=== PATIENT | male | born 1970 | race Caucasian/White ===

== ENCOUNTER 2021-07-27 04:30 | Day surgery (SDC) | payer OTHER ==
[2021-07-27] MEDS ORDERED: MIDAZOLAM HCL 2 MG/2 ML SINGLE DOSE VIAL ONE (14:18)
[2021-07-27] MEDS ORDERED: SUCCINYLCHOLINE CHLORIDE 200 MG/10 ML SYRINGE ONE (14:18)
[2021-07-27 14:56] VITALS: PULSE 60
[2021-07-27 15:45] VITALS: BP 138/80; TEMP 97.7
== END 2021-07-27 15:35 | disposition home or self-care (01) ==
LOC: JASU-SURG 04:30
PROVIDERS: ATTEND Urology
PROC: 0TF3XZZ Fragmentation in Right Kidney Pelvis, External Approach (ICD-10-PCS; principal; 2021-07-27 14:30)
DX: N20.0 Calculus of kidney (principal)
CPT/HCPCS: 82962

== ENCOUNTER 2022-09-15 10:52 | Day surgery (SDC) | payer OTHER ==
[2022-09-15 10:55] VITALS: BMI 33.7
[2022-09-15] MEDS ORDERED: morphine CARPU-JECT 4 MG/1 ML DISP.SYRIN IVPUSH PRN (11:45)
[2022-09-15] MEDS ORDERED: ONDANSETRON 4 MG/2 ML VIAL IVPUSH ONE (11:45)
[2022-09-15] MEDS ORDERED: SODIUM CHLORIDE 1,000 ML IV STA (11:45)
[2022-09-15] MEDS ORDERED: ACETAMINOPHEN 1000 MG/100 ML BAG IVPB ONE (11:45)
[2022-09-15] MEDS ORDERED: ACETAMINOPHEN INJECTION 100 ML IVPB ONE ×2 (12:18→17:49)
[2022-09-15] MEDS ORDERED: ONDANSETRON 4 MG/2 ML VIAL ONE (12:18)
[2022-09-15] MEDS ORDERED: morphine CARPU-JECT 4 MG/1 ML DISP.SYRIN IVPUSH ONE (12:44)
[2022-09-15] MEDS ORDERED: morphine SULFATE 4 MG/ML VIAL ONE ×2 (12:47→13:33)
[2022-09-15 12:51] LABS: VENOUS BASE EXCESS -0.3 mmol/L (-2-2); VENOUS O2 SATURATION 28.5 % (70-80); VENOUS PH 7.326 (7.310-7.410)
[2022-09-15 12:56] LABS: INR 0.99 (0.83-1.09); PROTHROMBIN TIME (PATIENT) 11.5 SEC (9.7-13.0)
[2022-09-15 13:01] LABS: BASO % 0.4 % (0-2.0); EOS % 0.8 % (0-4.5); HEMATOCRIT 40.2 % (35.4-49); LYMPH % 17.3 % (8-40); MCH 29.7 pg (25.7-33.7); MCHC 34.8 g/dl (32.0-35.9); MEAN CELL VOLUME 85.3 fl (80-96); MEAN PLT VOLUME 8.2 fl (7.5-11.1); MONO % 3.6 % (3.8-10.2); NEUT % 77.9 % (42.8-82.8); PLATELET COUNT 240 10^3/uL (134-434); RBC 4.71 M/mm3 (4.00-5.60); RDW 13.9 % (11.9-15.9); WHITE BLOOD COUNT 14.6 K/mm3 (4.0-10.0)
[2022-09-15 13:13] LABS: POTASSIUM 4.4 mmol/L (3.5-5.1)
[2022-09-15 13:15] LABS: MAGNESIUM 2.1 mg/dL (1.8-2.4)
[2022-09-15 13:16] LABS: BLOOD UREA NITROGEN 10.3 mg/dL (7-18)
[2022-09-15 13:18] LABS: CREATININE 1.1 mg/dL (0.55-1.3)
[2022-09-15 13:20] LABS: BILIRUBIN,TOTAL 0.4 mg/dL (0.2-1); TOT PROT 7.7 g/dl (6.4-8.2)
[2022-09-15] MEDS ORDERED: morphine SULFATE 4 MG/ML VIAL IVPUSH ONE (14:01)
[2022-09-15] MEDS ORDERED: LIDOCAINE 1% P/F 10 MG/ML VIAL INF ONE (15:15)
[2022-09-15 15:30] LABS: URINE APPEARANCE CLEAR; URINE COLOR YELLOW
[2022-09-15 15:31] LABS: PH,URINE 5.5 (5.0-8.0); URINE BILIRUBIN NEGATIVE (NEGATIVE); URINE GLUCOSE (UA) NEGATIVE (NEGATIVE); URINE KETONE TRACE (NEGATIVE); URINE NITRITE NEGATIVE (NEGATIVE); URINE PROTEIN NEGATIVE (NEGATIVE); URINE UROBILINOGEN 0.2 mg/dL (0.2-1.0)
[2022-09-15 15:32] LABS: URINE LEUK ESTERASE NEGATIVE (NEGATIVE)
[2022-09-15] MEDS ORDERED: BUPIVACAINE HCL/PF 0.5% (5MG/ML) 10 ML VIAL ONE (15:53)
[2022-09-15] MEDS ORDERED: LIDOCAINE HCL 1%, 10 MG/ML (10ML VIAL) MDV ONE (15:53)
[2022-09-15] MEDS ORDERED: MIDAZOLAM HCL 2 MG/2 ML SINGLE DOSE VIAL ONE (15:59)
[2022-09-15] MEDS ORDERED: LIDOCAINE HCL/PF 2% SDV 5ML VIAL ONE (15:59)
[2022-09-15] MEDS ORDERED: ROCURONIUM BROMIDE 50 MG/5 ML SYRINGE ONE (16:00)
[2022-09-15] MEDS ORDERED: SUCCINYLCHOLINE CHLORIDE 200 MG/10 ML SYRINGE ONE (16:00)
[2022-09-15] MEDS ORDERED: PHENYLEPHRINE HCL 10 MG/1 ML SINGLE DOSE VIAL ONE (16:00)
[2022-09-15] MEDS ORDERED: PROPOFOL 60 ML ONE (16:01)
[2022-09-15] MEDS ORDERED: ceFAZolin SODIUM 1 GM VIAL ONE ×2 (16:01)
[2022-09-15] MEDS ORDERED: HYDROmorphone HCl 2 MG/ML VIAL ONE (16:05)
[2022-09-15 16:15] LABS: INR 1.01 (0.83-1.09); PROTHROMBIN TIME (PATIENT) 11.7 SEC (9.7-13.0)
[2022-09-15] MEDS ORDERED: ceFAZolin SODIUM 1 GM VIAL IVPB ONE (16:53)
[2022-09-15] MEDS ORDERED: ALBUTEROL SO4 HFA INHALER IH ONE (17:09)
[2022-09-15] MEDS ORDERED: BUPIVACAINE HCL/PF 0.5% (5MG/ML) 10 ML VIAL NR ONE (17:15)
[2022-09-15] MEDS: ACETAMINOPHEN 1000 MG/100 ML BAG IVPB SCH (18:43)
[2022-09-15] MEDS ORDERED: LACTATED RINGERS SOLUTION 1,000 ML IV SCH (18:45)
[2022-09-15] MEDS ORDERED: KETOROLAC TROMETHAMINE 30 MG/1 ML VIAL ONE (18:50)
[2022-09-15] MEDS ORDERED: KETOROLAC TROMETHAMINE 30 MG/1 ML VIAL IVPUSH ONE (18:53)
[2022-09-15] MEDS: KETOROLAC TROMETHAMINE 30 MG/1 ML VIAL IVPUSH SCH (18:57)
[2022-09-15] MEDS: metFORMIN HCL 500 MG TABLET (FP) PO SCH (19:15)
[2022-09-15] MEDS: INSULIN SLIDING SCALE (NOVOLOG) 1 VIAL SQ SCH (21:36)
[2022-09-16] MEDS: KETOROLAC TROMETHAMINE 30 MG/1 ML VIAL IVPUSH SCH ×2 (02:17→10:14)
[2022-09-16] MEDS: ACETAMINOPHEN 1000 MG/100 ML BAG IVPB SCH ×3 (02:17→13:18)
[2022-09-16] MEDS: metFORMIN HCL 500 MG TABLET (FP) PO SCH (06:45)
[2022-09-16] MEDS: INSULIN SLIDING SCALE (NOVOLOG) 1 VIAL SQ SCH ×3 (06:45→19:16)
[2022-09-16] MEDS: LISINOPRIL 5 MG TABLET PO SCH (10:14)
[2022-09-16] MEDS: TAMSULOSIN HCL 0.4 MG CAP PO SCH (10:14)
[2022-09-16 12:37] LABS: MCH 28.5 pg (25.7-33.7); MCHC 33.2 g/dl (32.0-35.9); MEAN CELL VOLUME 85.8 fl (80-96); MEAN PLT VOLUME 8.5 fl (7.5-11.1); PLATELET COUNT 236 10^3/uL (134-434); RBC 4.55 M/mm3 (4.00-5.60); RDW 14.1 % (11.9-15.9); WHITE BLOOD COUNT 20.6 K/mm3 (4.0-10.0)
[2022-09-16 13:02] LABS: POTASSIUM 4.4 mmol/L (3.5-5.1)
[2022-09-16 13:04] LABS: BLOOD UREA NITROGEN 15.2 mg/dL (7-18); CALCIUM 8.9 mg/dL (8.5-10.1)
[2022-09-16 13:06] LABS: ANISOCYTOSIS 0; HELMET CELLS 0; HOWELL-JOLLY BODIES 0; MACROCYTOSIS 0; OVALOCYTE 0; ROULEAU 0; SICKELED CELLS 0; TARGET CELLS 0; TEAR DROP CELLS 0; TOXIC GRANULATION 0
[2022-09-16 13:08] LABS: CREATININE 0.9 mg/dL (0.55-1.3)
[2022-09-16] MEDS ORDERED: ACETAMINOPHEN 500 MG TABLET (FP) PO PRN (13:37)
[2022-09-16] MEDS ORDERED: oxyCODONE HCL 5 MG TABLET PO PRN (13:38)
[2022-09-16] MEDS ORDERED: IBUPROFEN 600 MG TABLET (FP) PO PRN (13:38)
[2022-09-16] MEDS ORDERED: INSULIN (NOVOLOG) ASPART 100 UNITS/ML 10ML VIAL SQ SCH (16:30)
[2022-09-16] MEDS: ATORVASTATIN CA 40 MG TABLET (FP) PO SCH ×3 (22:45→22:47)
[2022-09-17] MEDS: INSULIN SLIDING SCALE (NOVOLOG) 1 VIAL SQ SCH ×2 (06:32→12:06)
[2022-09-17 08:18] LABS: BASO % 0.8 % (0-2.0); EOS % 0.7 % (0-4.5); HEMATOCRIT 36.9 % (35.4-49); HEMOGLOBIN 12.2 GM/dL (11.7-16.9); LYMPH % 31.7 % (8-40); MCH 28.8 pg (25.7-33.7); MCHC 32.9 g/dl (32.0-35.9); MEAN CELL VOLUME 87.5 fl (80-96); MEAN PLT VOLUME 8.9 fl (7.5-11.1); MONO % 2.8 % (3.8-10.2); PLATELET COUNT 236 10^3/uL (134-434); RBC 4.22 M/mm3 (4.00-5.60); RDW 14.1 % (11.9-15.9); WHITE BLOOD COUNT 15.3 K/mm3 (4.0-10.0)
[2022-09-17] MEDS: TAMSULOSIN HCL 0.4 MG CAP PO SCH (08:47)
[2022-09-17 08:58] VITALS: BP 147/88; PULSE 71; RESP 16; TEMP 97.8
[2022-09-17] MEDS: LISINOPRIL 5 MG TABLET PO SCH (09:07)
[2022-09-17] MEDS ORDERED: POLYETHYLENE GLYCOL (HEALTHYLAX) 3350 17 GM PACKET PO SCH (10:00)
== END 2022-09-17 12:27 | disposition home or self-care (01) ==
LOC: JER 10:52 → JERBED 16:05 → UNDOADMIN 16:05 → JASUSAT 18:26 → SUATTDRO 18:26 → J6S 19:59 → JASUSAT 09-17 12:27
PROVIDERS: ATTEND Internal Medicine
PROC: 0YU60JZ Supplement Left Inguinal Region with Synthetic Substitute, Open Approach (ICD-10-PCS; principal; 2022-09-15 15:30)
DX: K40.30 Unilateral inguinal hernia, with obstruction, without gangrene, not specified as recurrent (principal)
CPT/HCPCS: 36415; 74177-TC; 80048; 80053; 81003; 82803; 82962; 83605; 83690; 83735; 84100; 85025; 85610; 85730; 86850; 86900; 86901; 88302-TC; 93005; 93010; 94760; 99285-25; C1781; Q9967